=== PATIENT | female | born 1955 | race African-American/Black ===

== ENCOUNTER 2021-08-16 20:44 | Emergency (ER) | payer OTHER ==
[~2021-08-16] VITALS: Ht 167.6 cm; Wt 78.5 kg
[~2021-08-16 20:44] MED LIST: ATIVAN1 M1 PO; CARAFATE1 GM PO; DULOXETINE HCL60 MG PO; LYRICA25 MG PO; POTASSIUM CHLOR8 MEQ PO; REGLAN10 MG PO; ZOFRAN ODT4 MG DISSOLVE; [UNRECOGNIZED DRUG - OTHER]; [UNRECOGNIZED DRUG - OTHER]
[2021-08-16 22:01] LABS: ABSOLUTE NEUTROPHILS 3.7 thou/uL (1.4-8.2); BASOPHILS 0.8 % (0.0-2.0); EOSINOPHILS 0.8 % (0.0-3.0); HEMATOCRIT 43.3 % (37.0-47.0); HEMOGLOBIN 14.3 gm/dL (12.0-15.0); LYMPHOCYTES 36.9 % (24.0-44.0); MCH 28.6 pg (26.0-34.0); MCHC 33.1 g/dL (28.0-37.0); MCV 86.5 fL (80.0-100.0); MONOCYTES 5.6 % (1.0-8.0); PLATELET COUNT 440 thou/uL (150-400); POLYS 55.9 % (36.0-66.0); RBC 5.01 mil/uL (4.20-5.00); RDW 13.8 % (10.5-14.5); WBC 6.5 thou/uL (4.0-11.0)
[2021-08-16 22:22] LABS: ALBUMIN 3.4 g/dL (3.4-5.0); CALCIUM 9.3 mg/dL (8.5-10.1); CREATININE 0.8 mg/dL (0.6-1.0); TOTAL BILIRUBIN 0.4 mg/dL (0.2-1.0); TOTAL PROTEIN 7.6 g/dL (6.4-8.2)
[2021-08-16 22:29] LABS: POTASSIUM 2.9 mmol/L (3.5-5.1)
[2021-08-17 01:18] LABS: URINE BILIRUBIN NEGATIVE (Negative); URINE BLOOD NEGATIVE (Negative); URINE CLARITY CLEAR; URINE COLOR YELLOW; URINE GLUCOSE-RANDOM* NEGATIVE (Negative); URINE KETONES NEGATIVE (Negative); URINE LEUKOCYTES-REFLEX NEGATIVE (Negative); URINE NITRITE-REFLEX NEGATIVE (Negative); URINE PROTEIN (DIPSTICK) NEGATIVE (Negative); URINE UROBILINOGEN 0.2 E.U./dl (0.2-1.0)
[2021-08-17 01:35] VITALS: BP 163/95
== END 2021-08-17 01:43 | disposition home or self-care (01) ==
LOC: ER 20:44
PROVIDERS: Emergency Medicine
DX: K31.84 Gastroparesis (principal); E11.43 Type 2 diabetes mellitus with diabetic autonomic (poly)neuropathy; E87.6 Hypokalemia; R11.2 Nausea with vomiting, unspecified; R10.13 Epigastric pain; Z79.899 Other long term (current) drug therapy; Z90.49 Acquired absence of other specified parts of digestive tract

== ENCOUNTER 2021-08-20 12:52 | Inpatient (IN) | payer OTHER ==
[~2021-08-20] VITALS: Ht 167.6 cm; Wt 78.5 kg
[~2021-08-20 12:52] MED LIST changes: +GLIPIZIDE; -[UNRECOGNIZED DRUG - OTHER]
[2021-08-20 13:05] VITALS: BP 170/117
[2021-08-20 14:41] LABS: BASOPHILS 0.6 % (0.0-2.0); EOSINOPHILS 0.1 % (0.0-3.0); HEMOGLOBIN 15.1 gm/dL (12.0-15.0); LYMPHOCYTES 19.7 % (24.0-44.0); MCH 29.5 pg (26.0-34.0); MCHC 33.6 g/dL (28.0-37.0); MCV 87.7 fL (80.0-100.0); MONOCYTES 2.7 % (1.0-8.0); PLATELET COUNT 511 thou/uL (150-400); POLYS 76.9 % (36.0-66.0); RBC 5.13 mil/uL (4.20-5.00); RDW 13.6 % (10.5-14.5); WBC 7.9 thou/uL (4.0-11.0)
[2021-08-20 14:59] LABS: ALBUMIN 3.7 g/dL (3.4-5.0); CALCIUM 9.4 mg/dL (8.5-10.1); TOTAL BILIRUBIN 0.8 mg/dL (0.2-1.0); TOTAL PROTEIN 8.3 g/dL (6.4-8.2)
[2021-08-20 15:03] LABS: POTASSIUM 2.9 mmol/L (3.5-5.1)
[2021-08-20 16:27] LABS: URINE BILIRUBIN NEGATIVE (Negative); URINE BLOOD NEGATIVE (Negative); URINE CLARITY CLEAR; URINE COLOR YELLOW; URINE GLUCOSE-RANDOM* TRACE (Negative); URINE KETONES 1+ (Negative); URINE LEUKOCYTES-REFLEX NEGATIVE (Negative); URINE NITRITE-REFLEX NEGATIVE (Negative); URINE PROTEIN (DIPSTICK) NEGATIVE (Negative); URINE UROBILINOGEN 0.2 E.U./dl (0.2-1.0)
[2021-08-20 16:43] LABS: AMP/METHAMP Negative (Negative); BARBITURATES Negative (Negative); BENZODIAZEPINES Negative (Negative); COCAINE Negative (Negative); METHADONE Negative (Negative); OPIATES Negative (Negative); PCP Negative (Negative)
--- NOTE | 2021-08-20 17:34 | NUR ---
A LEFT PIV PLACED EARLIER IN ER. IV KINKED AND DRESSING CHANGED. IV WNL. A #4F MIDLINE WAS PLACED AFTER VERBAL CONSENT OBTAINED. WE DISCUSSED RISKS AND BENIFITS OF LINE PLACEMENT AND SHE VERBALIZED UNDERSTANDING. THE LINE WAS TRIMMED TO 15CM AND ADVANCED WITHOUT DIFFICULTY. LINE SECURED AND RELEASED FOR USE
[2021-08-20 18:23] LABS: MAGNESIUM 1.7 mg/dL (1.8-2.4)
[2021-08-20 21:32] VITALS: BP 161/79
[2021-08-20 21:50] VITALS: BP 157/109
[2021-08-21 00:01] VITALS: BP 175/107
--- NOTE | 2021-08-21 05:17 | NUR ---
PT ARRIVED ON THE UNIT AT 2150. PT IS ALERT AND ORIENTED x4. PT WAS ORIENTED TO THE FLOOR AND EDUCATED ON THE USE OF CALL LIGHT. PT HAS TEARY AND ANXIOUS DUE TO PAIN. MEDS WERE GIVEN PER EMAR ORDERS. PT TOLEARTING RA. PT SLEPT FOR THE MOST PART OF THE SHIFT. WILL CONTINUE OT MONITOR.
[2021-08-21 05:46] VITALS: BP 139/98
--- NOTE | 2021-08-21 07:34 | EKG ---
[address] [place] [employer] [address] ELECTROCARDIOGRAM REPORT Name: EARNEST CHO Room #: 455-P ADM IN M.R.#: [id number] Admission: 08/20/21 Attend Phys: Raymundo Busby MD Discharge: Date of : 57 Report #: [id number] [facility] ED Test Date: 2021-08-20 Test Time: 17:35:12 Pat Name: EARNEST CHO Department: Room: [facility] Gender: F Lead Front Desk Agent: : [id number] Requested By: María Triana Order Number: [id number] MD: Omi Wills Measurements Intervals [place] Rate: 112 P: 59 RI: 161 QRS: -37 QRSD: 95 T: 83 QT: 365 QTc: 499 Interpretive Statements Sinus tachycardia Left atrial enlargement Left axis deviation Nonspecific T abnormalities, lateral leads Borderline prolonged QT interval No previous ECG available for comparison Electronically Signed On 08-21-2021 7:34:25 CDT by Omi Wills [email or web address] <ELECTRONICALLY SIGNED> By: Omi Wills MD, [facility] 08/21/21 0734 1735 1735 Omi Wills MD, FACC /EPI
[2021-08-21 11:39] VITALS: BP 132/87
--- NOTE | 2021-08-21 13:27 | NUR ---
PT DOES NOT NEED/WANT OT. SEE OT VARIANCE FOR MORE SPECIFICS. NO EVAL COMPLETE
--- NOTE | 2021-08-21 14:10 | NUR ---
ORDERS RECEIVED FOR EVAL AND TREAT. Pt FAMILIAR TO THERAPY DEPARTMENT DUE TO MULTIPLE ADMISSIONS. Pt STATING SHE DOES NOT NEED P.T. OR O.T. AND IS GETTING AROUND FINE. Pt DECLINING FORMAL P.T. EVAL. TOLD Pt TO HAVE US RECONSULTED IF SHE STARTS TO HAVE ANY ISSUES WITH HER MOBILITY.
--- NOTE | 2021-08-21 14:32 | NUR ---
A/O X 4. ROOM AIR, SINUS TACH ON TELE. STAND BY ASSIST. AC HS BS CHECKS. LEFT UPPER ARM MIDLINE INFUSING POTASSIUM @ 75 MLS/HR. SCOPE PATCH RIGHT EAR. NAUESA- ZOFRAN GIVEN. HAS BEEN CRYING ON AND OFF THROUGHOUT THE DAY AND SHE DOESNT KNOW WHY SHES CRYING. TOLERATING CLEAR LIQUID DIET WELL. RIGHT UPPER MIDLINE CAME OUT PATIENT DOESNT KNOW HOW, LEFT MIDLINE FLUSHING WELL.
[2021-08-21] MEDS ORDERED: XARELTO20 MG PO (14:36)
--- NOTE | 2021-08-21 15:04 | NUR ---
PT ADMITTED RELATED TO COLITIS, NAUSEA,VOMITING. CM REVIEWED CHART AND SPOKE WITH CARE TEAM. CM MET WITH PT AT BEDSIDE THIS DAY. PT APPEARED TO BE A&O X4. CM ROLE INTRODUCED. PT INDICATED SHE LIVES IN A FIRST FLOOR APARTMENT ALONE WITH NO STEPS. PT INDICATED SHE HAD BEEN STAYING WITH HER DTR FOR A TIME AFTER HER LAST ADMISSION BUT HAD RETURNED HOME PRIOR TO THIS ADMISSION. PT INDICATED SHE ANTICIPATES RETURNING EITHER HOME OR TO HER DTR'S HOUSE ONCE MEDICALLY STABLE. CM FOLLOWING.
[2021-08-21 16:02] VITALS: BP 112/69
[2021-08-21 16:28] LABS: MCH 28.5 pg (26.0-34.0); MCHC 32.6 g/dL (28.0-37.0); MCV 87.5 fL (80.0-100.0); RBC 4.57 mil/uL (4.20-5.00); RDW 13.9 % (10.5-14.5); WBC 7.8 thou/uL (4.0-11.0)
[2021-08-21 16:36] LABS: CALCIUM 8.7 mg/dL (8.5-10.1); CREATININE 0.8 mg/dL (0.6-1.0); MAGNESIUM 1.7 mg/dL (1.8-2.4); POTASSIUM 3.2 mmol/L (3.5-5.1)
[2021-08-21 19:59] VITALS: BP 116/72
--- NOTE | 2021-08-22 03:39 | NUR ---
ASSUMED PT CARE THIS PM. PT IS ALERT AND ORIENTED X4. PT IS SBA TO THE BR. PT TOLERATING RA. VS WITHIN NORMAL RANGE AND MEDS GIVEN PER EMAR ORDERS. FALL PREACUTIONS IN PLACE. WILL CONTINUE TO MONITOR.
[2021-08-22 07:36] VITALS: BP 146/97
[2021-08-22 11:30] VITALS: BP 118/81
--- NOTE | 2021-08-22 13:16 | NUR ---
ASSUMED PT CARE THIS AM. PT A&OX2, WITH CONFUSION NOTED. PATIENT HAVING INTEMITTENT VISUAL HALLUCINATIONS. PATIENT CALLED 5S DEMANDING PRESCRIPTIONS, DR. FERRER CAME TO FLOOR TO ASSESS PATIENT WELL HOSPITALIST. PATIENT REPORTS THAT SHE KNOWS SHE IS NOT FULLY AWARE MENTALLY. PATIENT REPORTED NAUSEA THIS AM, DECREASED WITH MEDICATION GIVEN. IV REMAINS PATENT, MEDICATION INFUSING WITHOUT ISSUE. FALL PRECAUTIONS ARE IN PLACE, CALL LIFGHT WITHIN REACH. PATIENT UNSTEADY ON FEET WHEN AMBULATING, AND WILL GET OUT OF BED WITHOUT CALLING. PATIENT EDUCATED ON IMPORTANCE OF CALLING PRIOR TO GETTING OUT OF BED.
[2021-08-22 16:54] VITALS: BP 150/97
--- NOTE | 2021-08-22 17:55 | NUR ---
THIS PATIENT DISCONTINUED HER MIDLINE AND PERIPHERAL IV. A 2ND MIDLINE WAS PLACED IN THE RIGHT UPPER ARM. TRIMMED TO 15CM AND RELEASED FOR USE
[2021-08-22 19:56] VITALS: BP 156/81
[2021-08-22 20:00] VITALS: BP 141/82
--- NOTE | 2021-08-23 03:24 | NUR ---
Assumed pt care at 1900. A/OX2-3 with intermittent confusion and delirium noted.Pt gets somewhat upset when re-oriented to reality stating "Why do you think I'm crazy I'm not" Easily reoriented though. Contantly asking for [place],informed it was d/c due to GI issues and needs to stay off narcotics;pt stated she'll talk with the Dr in am about it. Declined taking Tylenol when offered. Pt needs frequent reminders to call for help before getting out of the bed;unsteady on feet/IVF infusing and pulling on midline. Fall precautions in place,frequent checks on pt done. Medicated for nausea per request;no emesis so far. SR on telemetry.REsting quietly w/o distress,will continue to monitor pt.
[2021-08-23 08:17] LABS: CALCIUM 7.3 mg/dL (8.5-10.1); CREATININE 0.6 mg/dL (0.6-1.0); MAGNESIUM 1.6 mg/dL (1.8-2.4); POTASSIUM 3.5 mmol/L (3.5-5.1)
[2021-08-23 08:21] VITALS: BP 145/86
--- NOTE | 2021-08-23 16:32 | NUR ---
ASSUMED PT CARE AROUND 07. PT ALERT X ORIENTED X 3-4, SOMETIMES CONFUSED. PT WAS FINE ILL NOON, LATER FOUND TALKING HALLUCINATED. ONE PERSON ASSIST. ON ROOM AIR, IV RT UA/FLUIDS RUNNING. FULL LIQUID DIET. ACCUCHECK AND ACHS. ON TELE MONITOR. FALL PRECAUTION IN PLACE. CALL LIGHT IN REACH. WILL CONTINUE TO MONITOR.
[2021-08-23 20:52] VITALS: BP 157/108
[2021-08-23 21:17] VITALS: BP 144/87
--- NOTE | 2021-08-24 03:30 | NUR ---
ASSUEMD PT CARE THIS PM.PT IS ALERT AND ORIENTED X4. NO SIGN OF CONFUSION OR HALLUCINATION WAS NOTED. PT DID NOT VERBALIZE ANY CONCERNS. PT DID NOT C/O N/V MEDS WERE GIVEN PER EMAR ORDERS. FALL PRECAUTIONS IN PLACE. WILL CONTINUE TO MONITOT.
[2021-08-24 08:10] VITALS: BP 142/92
[2021-08-24 11:58] VITALS: BP 146/95
[2021-08-24] MEDS ORDERED: PEPCID20 MG PO (13:45)
[2021-08-24] MEDS ORDERED: ZOFRAN ODT4 MG DISSOLVE (13:45)
--- NOTE | 2021-08-24 14:41 | NUR ---
ASSUMED PT CARE THIS AM. PT A&OX3, ABLE TO MAKE NEEDS KNOWN. PATIENT HAS BEEN COOPERATIVE THIS SHIFT. PATIENT REMAINS CONTINENT, UP WITH ASSIST TO THE BEDSIDE COMMODE. FALL PRECUATIONS ARE IN PLACE, CALL LIGHT WITHIN REACH. MEDICACTIONS TAKEN WITHOUT ISSUE.
[2021-08-24 14:44] VITALS: BP 146/95
[2021-08-24 15:04] VITALS: BP 152/105
--- NOTE | 2021-08-24 16:44 | NUR ---
CARE TEAM INDICATED THAT PT IS MEDICALLY STABLE TO DC HOME THIS DAY TO SELF CARE. NO OTHER CM INTERVENTION INDICATED. CASE CLOSED.
== END 2021-08-24 16:33 | disposition home or self-care (01) | DRG 74 ==
LOC: ER 12:52 → 4W 17:13 → EROBS 17:13 → 4W 21:45
PROVIDERS: Nurse Practitioner; Nurse Practitioner Family; ADMIT Internal Medicine; ATTEND Internal Medicine
PROC: 05HC33Z Insertion of Infusion Device into Left Basilic Vein, Percutaneous Approach (ICD-10-PCS; principal; 2021-08-20)
DX: E11.43 Type 2 diabetes mellitus with diabetic autonomic (poly)neuropathy (principal); F05 Delirium due to known physiological condition; K52.9 Noninfective gastroenteritis and colitis, unspecified; E86.0 Dehydration; E87.6 Hypokalemia; F32.9 Major depressive disorder, single episode, unspecified; S92.351A Displaced fracture of fifth metatarsal bone, right foot, initial encounter for closed fracture; F41.9 Anxiety disorder, unspecified; E66.01 Morbid (severe) obesity due to excess calories; E11.42 Type 2 diabetes mellitus with diabetic polyneuropathy; K31.84 Gastroparesis; F12.90 Cannabis use, unspecified, uncomplicated; Z68.27 Body mass index [BMI] 27.0-27.9, adult; Z90.49 Acquired absence of other specified parts of digestive tract; X58.XXXA Exposure to other specified factors, initial encounter; Y93.89 Activity, other specified; Y92.89 Other specified places as the place of occurrence of the external cause; Y99.8 Other external cause status; Z20.822 Contact with and (suspected) exposure to COVID-19
CPT/HCPCS: 10045; 27000